=== PATIENT | female | born 1985 | race African-American/Black ===

== ENCOUNTER 2016-09-18 13:23 | Emergency (ER) | payer OTHER ==
[~2016-09-18] VITALS: Ht 170.2 cm; Wt 89.8 kg
--- NOTE | 2016-09-18 13:55 | Emergency Room Report ---
History of Present Illness General Chief Complaint: Lower Extremity Injury Source: Patient Present Illness HPI 31-year-old female presents emergency department complaining of 8/10 in severity localized right ankle pain status post twisting her ankle and falling. Patient reports swelling times bruising patient states pain is exacerbated upon bearing weight. Patient denies previous injury to the affected extremity. She denies hitting her head or loss of consciousness. Denies numbness tingling or loss of sensation or gross motor movements of the extremities, incontinence of bowel or bladder. Denies CP, Palpitations, LOC, AMS, dizziness, Changes in Vision, Sensation, paresthesias, or a sudden severe headache. Allergies: Coded Allergies: No Known Allergies (Unverified , 09/18/16) Patient History Past Medical History: see triage record Past Surgical History: none Pertinent Family History: none Last Menstrual Period: 09/04/16 Now: No Immunizations: UTD Reviewed Nursing Documentation: PMH: Agreed, PSxH: Agreed Nursing Documentation-PMH Past Medical History: No Stated History Review of Systems All Other Systems: negative except mentioned in HPI Physical Exam Vital Signs Date Time Temp Pulse Resp B/P Pulse Ox O2 Delivery O2 Flow Rate FiO2 09/18/16 13:37 98.2 85 16 108/74 99 Room Air Sp02 EP Interpretation: reviewed, normal General Appearance: no apparent distress, alert, GCS 15, non-toxic Head: normocephalic, atraumatic Eyes: bilateral eye PERRL, bilateral eye normal inspection ENT: hearing grossly normal, normal pharynx, no angioedema, normal voice Neck: full range of motion, supple/symm/no masses Respiratory: chest non-tender, lungs clear, normal breath sounds, speaking full sentences Cardiovascular #1: regular rate, rhythm, no edema Cardiovascular #2: 2+ dorsalis pedis (R), 2+ dorsalis pedis (L) Musculoskeletal: back normal, gait/station normal, normal range of motion - with pain, swelling - right lateral ankle, tender - right lateral ankle ttp, with swelling noted, no bruising, no pain to the foot. tenderness is localized to ankle region, good capillary refill Neurologic: alert, oriented x3, responsive, motor strength/tone normal, sensory intact, speech normal Psychiatric: judgement/insight normal, memory normal, mood/affect normal Skin: normal color, no rash, warm/dry, well hydrated Medical Decision Making PA Attestation Dr. Pina is my supervising Physician whom patient management has been discussed with. Diagnostic Impression: Primary Impression: Right ankle sprain Qualified Codes: S93.401A - Sprain of unspecified ligament of right ankle, initial encounter ER Course 31-year-old female presents emergency department complaining of 8/10 in severity localized right ankle pain status post twisting her ankle and falling. Patient reports swelling , denies bruising patient states pain is exacerbated upon bearing weight. Patient denies previous injury to the affected extremity. She denies hitting her head or loss of consciousness. Ddx considered but are not limited to Fracture, dislocation, contusion, Sprain/ Strain/Spasm. Vital signs: are WNL, pt. is afebrile H&PE are most consistent with possible ankle sprain will r/o fx with imaging ORDERS: - X-ray Right ankle 3 views - negative for fx, Dislocation, or significant soft tissue injury, per preliminary read in ED by Dr. Pina ED INTERVENTIONS: - [place] PO - Pre-fabricated air splint applied to the right ankle by rad technologist. Pt. remains neurovascularly intact. -patient is provided with crutches. DISCHARGE: At this time pt. is stable for d/c to home. Will provide printed patient care instructions, and any necessary prescriptions. Care plan and follow up instructions have been discussed with the patient prior to discharge. Last Vital Signs Date Time Temp Pulse Resp B/P Pulse Ox O2 Delivery O2 Flow Rate FiO2 09/18/16 13:37 98.2 85 16 108/74 99 Room Air Disposition: HOME, SELF-CARE Condition: Stable Scripts Ibuprofen* (MOTRIN*) 600 Mg Tablet 600 MG ORAL THREE TIMES A DAY, #30 TAB 0 Refills Prov: Roseline Arreola 09/18/16 Referrals: [employer] [facility],REFERJORGE ALBERTO (PCP) Patient Instructions: Ankle Sprain Additional Instructions: Take medications as directed. Follow up with PCP in 3-5 days Return sooner to ED if new symptoms occur, or current symptoms become worse. Do not drink alcohol, drive, or operate heavy machinery while taking [ ] as this may cause drowsiness. - Please note that this Emergency Department Report was dictated using Qiotaping supervisor technology software, occasionally this can lead to erroneous entry secondary to interpretation by the dictation equipment. Roseline Arreola September 18, 2016 13:55
[2016-09-18] MEDS ORDERED: Norco 5mg/325mg tab ORAL ONE (14:00)
[2016-09-18] MEDS ORDERED: IBUPROFEN600 MG ORAL (14:07)
[2016-09-18 14:20] VITALS: BP 108/74
--- NOTE | 2016-09-18 17:33 | Diagnostic Imaging Report ---
Indication: PAIN Technique: 3 views of the right ankle Comparison: none Findings: No acute fractures or dislocations. Joint spaces are preserved. Impression: Negative
== END 2016-09-18 14:20 | disposition home or self-care (01) ==
LOC: EMR 13:44
DX: S93.401A Sprain of unspecified ligament of right ankle, initial encounter (principal); W01.0XXA Fall on same level from slipping, tripping and stumbling without subsequent striking against object, initial encounter; Y93.9 Activity, unspecified; Y92.9 Unspecified place or not applicable
CPT/HCPCS: 29540; 99283